=== PATIENT | female | born 1960 | race Asian ===

== ENCOUNTER 2023-04-07 17:15 | Emergency (ER) | payer OTHER ==
[~2023-04-07] VITALS: Ht 152.4 cm; Wt 63.5 kg
[2023-04-07 17:27] VITALS: BP 145/74
[2023-04-07] MEDS ORDERED: Zovirax800 MG PO (18:26)
== END 2023-04-07 19:00 | disposition home or self-care (01) ==
LOC: ER 17:15
DX: B02.9 Zoster without complications (principal)
CPT/HCPCS: 99282; A9270